=== PATIENT | female | born 1940 | race Caucasian/White ===

== ENCOUNTER 2021-08-13 03:36 | Emergency (ER) | payer OTHER ==
[~2021-08-13 03:36] MED LIST: ATIVAN0.5 MG PO; BENAZEPRIL HCL20 MG PO; CERTAGEN1 EACH PO; GABAPENTIN300 MG PO; PERCOCET 5/3251 TAB PO; TRAMADOL HCL50 MG PO; VITAMIN D2000 UNI1 PO
[2021-08-13 06:46] LABS: BASOPHIL 0.3 % (0-2); HGB 14.6 g/dl (12.5-16.0); LYMPHOCYTE 9.2 % (15-48); MCH 29.9 pg (25.0-31.0); MCHC 33.2 g/dL (32.0-36.0); MCV 90.2 fL (78.0-100.0); MONOCYTE 8.9 % (0-12); MPV 9.1 fL (6.0-9.5); NRBC 0; PLT 210 K/uL (150-400); RBC 4.88 M/uL (4.20-5.40); RDW 13.3 % (11.5-14.0)
[2021-08-13 07:02] LABS: INR 1.11 (0.9-1.2); PROTHROMBIN TIME 13.7 SECONDS (11.8-13.4); PTT 26.6 SECONDS (24.4-34.7)
[2021-08-13 07:07] LABS: ALBUMIN 3.3 g/dL (3.4-5.0); BILIRUBIN - TOTAL 1.1 mg/dL (0.2-1.0); BUN/CREAT RATIO (CALC) 20.8 RATIO; CREATININE 0.72 mg/dL (0.51-0.95); GLOBULIN (CALCULATION) 3.5 g/dL; POTASSIUM 3.8 mmol/L (3.5-5.1); TOTAL PROTEIN 6.8 g/dL (6.4-8.2)
[2021-08-13 07:15] LABS: LACTIC ACID 0.9 mmol/L (0.4-1.9)
[2021-08-13] MEDS ORDERED: PREDNISONE 10MG10 MG PO (09:58)
[2021-08-13] MEDS ORDERED: PEPCID AC20 MG PO (09:58)
== END 2021-08-13 11:13 | disposition home or self-care (01) ==
LOC: FER 03:36
PROVIDERS: Emergency Medicine Emergency Medical Services
DX: K62.5 Hemorrhage of anus and rectum (principal); R10.9 Unspecified abdominal pain; L50.9 Urticaria, unspecified; Z88.2 Allergy status to sulfonamides; Z88.6 Allergy status to analgesic agent; Z88.5 Allergy status to narcotic agent
CPT/HCPCS: 36415; 80053; 83605; 85025; 85610; 85730; J1200; J2930; Q9967

== ENCOUNTER 2021-08-15 10:07 | Emergency (ER) | payer OTHER ==
[~2021-08-15 10:07] MED LIST changes: +PEPCID AC20 MG PO; +PREDNISONE 10MG10 MG PO
[2021-08-15] MEDS ORDERED: MEDROL 4MG DOSEP4 MG PO (11:18)
== END 2021-08-15 13:25 | disposition home or self-care (01) ==
LOC: FER 10:07
DX: T78.3XXA Angioneurotic edema, initial encounter (principal)
CPT/HCPCS: J1200; J2930

== ENCOUNTER 2021-09-18 15:44 | Emergency (ER) | payer OTHER ==
[~2021-09-18 15:44] MED LIST changes: +MEDROL 4MG DOSEP4 MG PO
[2021-09-18] MEDS ORDERED: DIFLUCAN150 MG PO (18:53)
[2021-09-18] MEDS ORDERED: NYSTATIN 30GM C30 GM TOP (18:53)
== END 2021-09-18 19:09 | disposition home or self-care (01) ==
LOC: FER 15:44
DX: B37.2 Candidiasis of skin and nail (principal); I10 Essential (primary) hypertension; Z88.0 Allergy status to penicillin; Z88.2 Allergy status to sulfonamides; Z88.5 Allergy status to narcotic agent; Z88.6 Allergy status to analgesic agent; Z88.8 Allergy status to other drugs, medicaments and biological substances
CPT/HCPCS: 99282

== ENCOUNTER 2021-12-26 10:18 | Day surgery (SDCO) | payer OTHER ==
[~2021-12-26] VITALS: Ht 154.9 cm; Wt 99.0 kg
[~2021-12-26 10:18] MED LIST changes: +DIFLUCAN150 MG PO; +NYSTATIN 30GM C30 GM TOP
[2021-12-26 13:16] LABS: BASOPHIL 0.2 % (0-2); EOSINOPHIL 0.3 % (0-7); HGB 14.7 g/dl (12.5-16.0); LYMPHOCYTE 4.6 % (15-48); MCH 29.5 pg (25.0-31.0); MCHC 32.7 g/dL (32.0-36.0); MCV 90.2 fL (78.0-100.0); MONOCYTE 11.8 % (0-12); MPV 9.1 fL (6.0-9.5); NEUTROPHIL 82.1 % (41-80); NRBC 0; PLT 146 K/uL (150-400); RBC 4.99 M/uL (4.20-5.40); RDW 13.6 % (11.5-14.0); WBC 17.8 K/uL (4.0-10.5)
[2021-12-26 13:25] LABS: BILIRUBIN 1+ mg/dL (NEGATIVE); BLOOD TRACE-INTACT Ery/uL (NEGATIVE); CLARITY CLEAR (CLEAR); COLOR YELLOW (YELLOW); GLUCOSE (U) NORMAL (NORMAL); LEUKOCYTES NEGATIVE Leu/uL (NEGATIVE); NITRITE NEGATIVE (NEGATIVE); PROTEIN NEGATIVE (NEGATIVE); UROBILINOGEN 0.2 mg/dL (0.2-1.0)
[2021-12-26 13:27] LABS: INR 1.11 (0.9-1.2); PROTHROMBIN TIME 13.7 SECONDS (11.8-13.4); PTT 29.1 SECONDS (24.4-34.7)
[2021-12-26 13:37] LABS: IRON % SATURATION 7.4 %SAT (20-50)
[2021-12-26 13:43] LABS: BACTERIA 2+
[2021-12-26 13:44] LABS: SQUAMOUS EPITHELIAL CELLS 20-50
[2021-12-26 13:51] LABS: MAGNESIUM 2.1 mg/dL (1.8-2.4)
[2021-12-26 14:12] LABS: CORONAVIRUS 2019 SARS-COV-2 NEGATIVE (NEGATIVE); INFLUENZA A NAA NEGATIVE (NEGATIVE)
[2021-12-26 15:25] LABS: ALBUMIN 2.9 g/dL (3.4-5.0); BILIRUBIN - TOTAL 1.9 mg/dL (0.2-1.0); BUN/CREAT RATIO (CALC) 19.1 RATIO; CREATININE 0.89 mg/dL (0.51-0.95); GLOBULIN (CALCULATION) 3.3 g/dL; POTASSIUM 4.3 mmol/L (3.5-5.1); TOTAL PROTEIN 6.2 g/dL (6.4-8.2)
[2021-12-27 05:32] LABS: BUN/CREAT RATIO (CALC) 14.4 RATIO; CREATININE 0.97 mg/dL (0.51-0.95); POTASSIUM 4.1 mmol/L (3.5-5.1)
[2021-12-27 06:04] LABS: BASOPHIL 0.3 % (0-2); EOSINOPHIL 0.4 % (0-7); HCT 41.8 % (37.0-47.0); HGB 13.1 g/dl (12.5-16.0); MCH 29.1 pg (25.0-31.0); MCHC 31.3 g/dL (32.0-36.0); MCV 92.9 fL (78.0-100.0); MPV 9.5 fL (6.0-9.5); NEUTROPHIL 77.6 % (41-80); NRBC 0; PLT 140 K/uL (150-400); RDW 13.7 % (11.5-14.0)
[2021-12-28] MEDS ORDERED: MYRBETRIQ50 MG PO (10:17)
[2021-12-28] MEDS ORDERED: PERCOCET 10-321 EACH PO (10:18)
[2021-12-28] MEDS ORDERED: SYNTHROID50 MCG PO (10:18)
--- NOTE | 2021-12-28 10:19 | NUR ---
PT STATED THAT SHE THOUGHT THERE WERE MORE MEDICATIONS THAT SHE WAS SUPPOSED TO BE TAKING. CALLED [facility] TO GET A LIST, UPDATED MED LIST ACCORDING TO PHARMACIST AT [facility]. MD WALLS MADE AWARE
--- NOTE | 2021-12-28 12:41 | NUR ---
12/28/21 Ms. Best Valentin lives at [facility]. She has a rw and cane. The bathroom is handicapped accessible. Will monitor for 02 needs.
[2021-12-29 06:20] LABS: BASOPHIL 0.5 % (0-2); EOSINOPHIL 3.9 % (0-7); HCT 38.5 % (37.0-47.0); HGB 12.2 g/dl (12.5-16.0); LYMPHOCYTE 8.4 % (15-48); MCH 29.9 pg (25.0-31.0); MCHC 31.7 g/dL (32.0-36.0); MCV 94.4 fL (78.0-100.0); MONOCYTE 11.4 % (0-12); MPV 9.8 fL (6.0-9.5); NRBC 0; PLT 125 K/uL (150-400); RBC 4.08 M/uL (4.20-5.40); RDW 13.8 % (11.5-14.0)
[2021-12-29 06:47] LABS: ALBUMIN 2.1 g/dL (3.4-5.0); BILIRUBIN - TOTAL 0.7 mg/dL (0.2-1.0); BUN/CREAT RATIO (CALC) 19.3 RATIO; CREATININE 1.19 mg/dL (0.51-0.95); GLOBULIN (CALCULATION) 3.7 g/dL; POTASSIUM 4.5 mmol/L (3.5-5.1); TOTAL PROTEIN 5.8 g/dL (6.4-8.2)
--- NOTE | 2021-12-29 15:45 | NUR ---
12/29/21 Please notify A at [phone] should patient dc over the weekend.
[2021-12-30] MEDS ORDERED: CEFDINIR300 MG PO (14:22)
--- NOTE | 2021-12-30 15:29 | NUR ---
CALLED [facility] FOR DISCHARGEW ACCORDING TO MARIAA'S NOTE. WHEN CALLING [facility] THEY STATED THAT THEY DID NOT HAVE A PATIENT LISTED BY THAT NAME OR BIRTHDAY ASSOCIATED. ANGELA PIERRE SPOKE TO MD WALLS TO VERIFY THAT THERE WAS AN REFERAL SENT TO [facility]. LEFT IN A NOTE BY MARIEL VIA [facility] STATES THAT THEY WAS REFERAL CALLED OVER AND NO ONE ANSWERED AND THEN AN EMAIL WAS SENT WITH THE REFERAL. SYLVIA CALLED BACK TO THE FLOOR TO VERIFY THERE WAS NOT A REFERAL ANGELA PIERRE ASKED IF THERE WAS A EMAIL STATING SO, AND THE NURSE EMBEDDED SYSTEMS DEVELOPER STATED SHE DID NOT HAVE ACCESS TO THE EMAILS. KAVITA NOTIFED. PT CONTINUED TO DC
--- NOTE | 2021-12-30 16:31 | NUR ---
BRITT AT [facility] CALLED BACK TO THE FLOOR SPOKE TO ANGELA PIERRE AND UPDATED THAT THE PATIENT WOULD BE DECLINED HOME HEALTH, THAT THERE WAS NOT STAFF AND THAT THERE WAS NO RECORD OF THE REFERAL. KAVITA ARCE WAS UPDATED THAT THE PATIENT WOULD NOT HAVE HOME HEALTH AND MARIEL WOULD BE LEFT A MESSAGE. ALICIA CHATMAN REACHED OUT TO PENELOPE BLACK WITH [facility] AND PENELOPE BLACK CONFIRMED THAT THE PATIENT WAS ON THE LIST TO BE SEEN AND THAT THERE WAS A PLAN IN PLACE FOR HOME HEALTH TO SEE PATIENT.
== END 2021-12-30 15:05 | disposition home health service (06) ==
LOC: FER 10:18 → FTCU 17:09 → FMS 17:09 → FTCU 20:11
PROVIDERS: Emergency Medicine; ADMIT Internal Medicine
DX: J18.8 Other pneumonia, unspecified organism (principal); G89.29 Other chronic pain; M54.9 Dorsalgia, unspecified; R10.9 Unspecified abdominal pain; K76.9 Liver disease, unspecified; R91.1 Solitary pulmonary nodule; R07.89 Other chest pain; N39.0 Urinary tract infection, site not specified; I10 Essential (primary) hypertension; I25.10 Atherosclerotic heart disease of native coronary artery without angina pectoris; I25.2 Old myocardial infarction; E66.9 Obesity, unspecified; M19.90 Unspecified osteoarthritis, unspecified site; Z20.822 Contact with and (suspected) exposure to COVID-19; Z85.828 Personal history of other malignant neoplasm of skin; Z88.6 Allergy status to analgesic agent; Z88.5 Allergy status to narcotic agent; Z88.2 Allergy status to sulfonamides; Z88.8 Allergy status to other drugs, medicaments and biological substances
CPT/HCPCS: 36415; 71250; 72131; 74183; 76705; 80048; 80053; 81001; 83540; 83550; 83605; 83690; 83735; 83880; 84145; 84443; 84484; 85025; 85610; 85730; 87088; 93005; 94640; A9579; G0378; J0456; J0696; J1650; J2405; J3010; J7050; U0002

== ENCOUNTER 2022-04-11 11:53 | Emergency (ER) | payer OTHER ==
[~2022-04-11 11:53] MED LIST changes: +CEFDINIR300 MG PO; +MYRBETRIQ50 MG PO; +PERCOCET 10-321 EACH PO; +SYNTHROID50 MCG PO
[2022-04-11 13:42] LABS: BASOPHIL 1.4 % (0-2); EOSINOPHIL 4.2 % (0-7); HCT 44.8 % (37.0-47.0); HGB 14.7 g/dl (12.5-16.0); LYMPHOCYTE 16.5 % (15-48); MCH 29.8 pg (25.0-31.0); MCHC 32.8 g/dL (32.0-36.0); MCV 90.7 fL (78.0-100.0); MONOCYTE 9.9 % (0-12); MPV 9.5 fL (6.0-9.5); NEUTROPHIL 67.5 % (41-80); NRBC 0; PLT 189 K/uL (150-400); RBC 4.94 M/uL (4.20-5.40); RDW 13.7 % (11.5-14.0); WBC 6.4 K/uL (4.0-10.5)
[2022-04-11 14:03] LABS: ALBUMIN 3.3 g/dL (3.4-5.0); BILIRUBIN - TOTAL 0.7 mg/dL (0.2-1.0); BUN/CREAT RATIO (CALC) 19.5 RATIO; CREATININE 0.87 mg/dL (0.51-0.95); GLOBULIN (CALCULATION) 2.9 g/dL; POTASSIUM 4.1 mmol/L (3.5-5.1); TOTAL PROTEIN 6.2 g/dL (6.4-8.2)
[2022-04-11 14:21] LABS: TOTAL CELL COUNT 100
[2022-04-11 14:22] LABS: EOSINOPHIL(M) 6 % (0-7); LYMPHOCYTE(M) 19 % (15-48); MONOCYTE(M) 11 % (0-12); NEUTROPHILS(M) 63 % (41-80)
[2022-04-11 14:23] LABS: BASOPHIL(M) 1 % (0-2)
[2022-04-11 14:25] LABS: PLATELET ESTIMATE NORMAL; PLATELET MORPHOLOGY NORMAL
[2022-04-11 14:55] LABS: BILIRUBIN NEGATIVE (NEGATIVE); BLOOD TRACE-INTACT Ery/uL (NEGATIVE); CLARITY HAZY (CLEAR); COLOR YELLOW (YELLOW); GLUCOSE (U) NORMAL (NORMAL); LEUKOCYTES NEGATIVE Leu/uL (NEGATIVE); NITRITE NEGATIVE (NEGATIVE); PROTEIN NEGATIVE (NEGATIVE); SPECIFIC GRAVITY >=1.030 (1.001-1.030); UROBILINOGEN 0.2 mg/dL (0.2-1.0); pH 5.5 (5.0-9.0)
== END 2022-04-11 16:30 | disposition home or self-care (01) ==
LOC: FER 11:53
PROVIDERS: Physician Assistant
DX: D32.9 Benign neoplasm of meninges, unspecified (principal); R41.3 Other amnesia; I10 Essential (primary) hypertension; Z88.2 Allergy status to sulfonamides; Z88.5 Allergy status to narcotic agent; Z88.6 Allergy status to analgesic agent
CPT/HCPCS: 36415; 70450; 80053; 81003; 84145